=== PATIENT | male | born 1995 | race Hispanic/Latino ===

== ENCOUNTER 2021-07-13 06:53 | Emergency (ER) | payer SELFPAY ==
[2021-07-13] MEDS ORDERED: Ondansetron ODT 8 MG TAB ONE (07:35)
[2021-07-13] MEDS ORDERED: Ketorolac Tromethamine 30 MG/ML VIAL ONE (07:35)
[2021-07-13] MEDS ORDERED: Acetaminophen 500 MG TAB ONE (08:32)
[2021-07-13 08:44] LABS: SARS-CoV-2 NAA Rapid Test DETECTED (NotDetected)
== END 2021-07-13 09:40 | disposition home or self-care (01) ==
LOC: EEVIPCON 06:53 → ERS 06:53
DX: U07.1 COVID-19 (principal); R11.0 Nausea
CPT/HCPCS: 0240U; 71045; 93005; 96372; J1885; Q0162